=== PATIENT | female | born 1980 | race Caucasian/White ===

== ENCOUNTER 2017-02-22 20:11 | Emergency (ER) | payer MEDICAID ==
[~2017-02-22] VITALS: Ht 149.9 cm; Wt 91.0 kg
[~2017-02-22 20:11] MED LIST: AMOX250S38 PO; IBUP-1706 PO; LEVO75TA59 PO
[2017-02-22 20:22] VITALS: Ht 149.9 cm; Wt 91.0 kg
--- NOTE | 2017-02-22 21:52 | ERD ---
ER Documentation Chief Complaint Date/Time DATE: 02/22/17 TIME: 21:48 Chief Complaint cough, dizziness, back ache x 1 day HPI This is a 28-year-old female presenting to emergency department for cough 2 weeks. Patient describes cough as constant with productive with green sputum. Patient has had intermittent tactile fevers. Reports body aches and bilateral ear pain. No wheezing, shortness of breath or difficulty breathing. Denies chest pain or heart palpitations. Patient did not take any medications today. Has taken Robitussin in the past. No sick contacts. ROS All systems reviewed and are negative except as per history of present illness. Medications Home Meds Active Scripts Guaifenesin/Codeine Phosphate (CHERATUSSIN AC SYRUP) 118 Ml Liquid, 10 ML PO Q6H Y for COUGH, #118 ML Prov:BECKY BASSETT POTATO PEELER 02/22/17 Amox Tr-Potassium Clavulanate* (Augmentin* Susp) 250-62.5MG/5 Ml - 100 Ml Susp.recon, 17.5 ML PO BID for 10 Days, BOTTLE Prov:ALEXANDER VASQUEZ NP 12/09/15 Ibuprofen* Susp (Motrin* Susp) 20 Mg/Ml Susp, 30 ML PO Q6H Y for PAIN AND OR ELEVATED TEMP, #480 OZ Prov:ALEXANDER VASQUEZ POTATO PEELER 12/09/15 Reported Medications Levothyroxine Sodium (Levothroid) 75 Mcg Tablet, 75 MCG PO DAILY 04/30/12 Allergies Allergies: Coded Allergies: No Known Allergy (Unverified , 04/13/14) PMhx/Soc History of Surgery: Yes (GALLBLADDER) Anesthesia Reaction: No Hx Neurological Disorder: No Hx Respiratory Disorders: No Hx Cardiac Disorders: No Hx Psychiatric Problems: No Hx Miscellaneous Medical Probl: Yes (hypothyroid) Hx Alcohol Use: No Hx Substance Use: No Hx Tobacco Use: No Smoking Status: Never smoker Physical Exam Vitals Vital Signs Date Time Temp Pulse Resp B/P Pulse Ox O2 Delivery O2 Flow Rate FiO2 02/22/17 20:22 98.1 92 17 151/73 83 Physical Exam Const: Alert, [id number]. Head: Atraumatic Eyes: Normal Conjunctiva ENT: Normal External Ears, Nose and Mouth. No erythema or exudate posterior pharynx. TMs normal bilaterally. Neck: Full range of motion..~ No meningismus. Resp: Clear to auscultation bilaterally. No wheezing rhonchi or crackles., No stridor or labored breathing. Cardio: Regular rate and rhythm, no murmurs Abd: Soft, non tender, non distended. Normal bowel sounds Skin: No petechiae or rashes Back: No midline or flank tenderness Ext: No cyanosis, or edema Neur: Awake and alert Psych: Normal Mood and Affect Procedures/MDM ED COURSE: The patient was stable throughout ED course. I kept the patient and/or family informed of laboratory and diagnostic imaging results throughout the ED course. Imaging CXR Patient: SABAS CAIN : 1980 Age: 36 Sex: F MR #: [id number] DOS: 02/22/172131 Ordering MD: BECKY BASSETT NP Location: [facility] Room/Bed: PROCEDURE: XR Chest. CLINICAL INDICATION: Cough for 2 weeks TECHNIQUE: Single frontal chest x-ray COMPARISON: None available FINDINGS: The lungs volumes are diminished. There are compressive changes with vascular crowding and basilar atelectasis. No focal consolidation is seen. The cardiomediastinal silhouette is normal. The base of the heart is elevated due to low lung volumes. The surrounding soft tissues and osseous structures are unremarkable. RPTAT: ZZ IMPRESSION: Hypoexpansion without acute cardiopulmonary abnormality. MDM: 36-year-old female presents emergency department for cough 2 weeks. Cough is productive with green sputum. Describes cough is constant. Patient also has body aches and bilateral ear pain. Chest x-ray reviewed by radiologist as hypoexpansioin without acute cardiopulmonary abnormality. Patient is afebrile upon arrival to ED. no signs or symptoms of respiratory distress. Lung exam is unremarkable. Low suspicion for pneumonia, pleural effusion or pneumothorax. Diagnosis is URI , viral. Patient is appropriate for outpatient management will be given prescription for Cheratussin AC syrup. Instructed patient to follow-up with primary care provider in the next 2-3 days for reassessment. Return to ED for any high fever , chest pain, difficulty breathing, shortness breath, wheezing, vomiting, diarrhea, abdominal pain or any new or worsening symptoms. Patient verbalizes understanding. All questions answered at discharge. Departure Diagnosis: Primary Impression: URI (upper respiratory infection) URI type: unspecified viral URI Qualified Code: J06.9 - Viral upper respiratory tract infection Condition: Stable BECKY BASSETT NP Feb 22, 2017 21:52
--- NOTE | 2017-02-22 22:54 | RADRPT ---
PROCEDURE: XR Chest. CLINICAL INDICATION: Cough for 2 weeks TECHNIQUE: Single frontal chest x-ray COMPARISON: None available FINDINGS: The lungs volumes are diminished. There are compressive changes with vascular crowding and basilar atelectasis. No focal consolidation is seen. The cardiomediastinal silhouette is normal. The base of the heart is elevated due to low lung volumes. The surrounding soft tissues and osseous structu res are unremarkable. RPTAT: ZZ IMPRESSION: Hypoexpansion without acute cardiopulmonary abnormality. .Esperanza Verdin MD, MD Date Time Electronically viewed and signed by .Esperanza Verdin MD, MD on 02/22/2017 22:54 .T/
[2017-02-22] MEDS ORDERED: GUAI118L22 PO (23:02)
== END 2017-02-22 23:10 | disposition home or self-care (01) ==
LOC: FTE 20:11
DX: J06.9 Acute upper respiratory infection, unspecified (principal); E03.9 Hypothyroidism, unspecified
CPT/HCPCS: 71010